=== PATIENT | female | born 1935 | race Caucasian/White ===

== ENCOUNTER 2016-08-31 19:29 | Emergency (ER) | payer MEDICARE, BC ==
[~2016-08-31 19:29] MED LIST: ADVA250A INH; ALBU1.25 NEB; ESTR1 PO; LEVA750T PO; PRED10 PO; PRED1SUS EACH EYE
[2016-08-31 19:36] VITALS: BP 139/65; PULSE 110; RESP 22; TEMP 99.1
--- NOTE | 2016-08-31 20:10 | PD ---
HPI Chief Complaint: Respiratory Symptoms Time Seen by Provider: 19:54 Travel History International Travel<30 days: No Contact w/Intl Traveler<30days: No Traveled to known affect area: No History of Present Illness HPI 81-year-old female complains of coughing congestion and shortness of breath. Patient has history COPD. Patient's on home O2 2 L nasal cannula. Patient states that she started having dry cough since yesterday. Patient started having fever chills also. Patient denies any chest pain. Patient uses albuterol nebulizer treatment at home, last treatment was yesterday. 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 PFSH Past Medical History Asthma: Yes Autoimmune Disease: No Blood Disorders: No Anxiety: No Depression: No Cancer: Yes (SKIN CANCER) Cardiovascular Problems: No High Cholesterol: No Chemotherapy: Yes (2013) COPD: Yes Diminished Hearing: No Endocrine: No Gastrointestinal Disorders: No Glaucoma: Yes Genitourinary: No Immune Disorder: No Implanted Vascular Access Dvce: No Musculoskeletal: Yes Neurologic: No Psychiatric: No Reproductive: No Respiratory: Yes Radiation Therapy: Yes (1943 or 49 childhood.) Shingles: Yes Menopausal: Yes Past Surgical History Abdominal Surgery: Yes (CHOLEYSYSTECTOMY, APPENDECTOMY) Appendectomy: Yes Cardiac Surgery: No Cholecystectomy: Yes Eye Surgery: Yes (RT CORNEA TRANSPLANT, CATARACT) Gynecologic Surgery: Yes (HYSTERECTOMY) Hysterectomy: Yes Joint Replacement: Yes (screws and metal plate in RUE.) Neurologic Surgery: No Oral Surgery: Yes (TONSILS AND ADNOIDS REMOVED) Pacemaker: No Thoracic Surgery: Yes ( LUNG BIOPSY, REMOVED NODULE 2006) Tonsillectomy: Yes Other Surgery: Yes (NODULE REMOVED FROM L LUNG IN OCTOBER 26) Social History Alcohol Use: Yes (OCC) Tobacco Use: No Substance Use: No Allergies-Medications (Allergen,Severity, Reaction): Coded Allergies: Percocet (Verified Allergy, Severe, NAUSEA, 05/16/16) Uncoded Allergies: ANTIBIOTICS THAT START WITH THE LETTER C (Allergy, Mild, ?, 01/05/12) PT CAN NOT REMEMBER THE NAME OF THE ANTIBIOTIC BUT STATES THAT IT GAVE HER UPSET STOMACH AND IT STARTED WITH LETTER C Reported Meds & Prescriptions Reported Meds & Active Scripts Active Albuterol Neb (Albuterol Sulfate) 1.25 Mg/3 Ml Neb 1.25 Mg NEB Q4HR PRN Reported Pred Forte Opth Drops (Prednisolone Acetate Opth Drops) 1% Susp 1 Drop EACH EYE BID Estrace (Estradiol) 1 Mg Tab 1 Mg PO DAILY Advair Diskus Inh (Fluticasone-Salmeterol Inh) 250-50 Mcg/Blist Aer 1 Puff INH BID Rinse mouth after use. Review of Systems General / Constitutional: No: Fever Eyes: No: Visual changes HENT: No: Headaches Cardiovascular: No: Chest Pain or Discomfort Respiratory: Positive: Cough, Shortness of Breath Gastrointestinal: No: Abdominal Pain Genitourinary: No: Dysuria Musculoskeletal: No: Pain Skin: No Rash Neurologic: No: Weakness Psychiatric: No: Depression Endocrine: No: Polydipsia Hematologic/Lymphatic: No: Easy Bruising Physical Exam Narrative GENERAL: Well-nourished, well-developed patient. SKIN: Warm and dry. HEAD: Normocephalic. EYES: No scleral icterus. No injection or drainage. NECK: Supple, trachea midline. No JVD or lymphadenopathy. CARDIOVASCULAR: Regular rate and rhythm without murmurs, gallops, or rubs. RESPIRATORY: Patient has diminished breath sounds bilaterally. Mild expiratory wheezes. Few rhonchi at the bases. GASTROINTESTINAL: Abdomen soft, non-tender, nondistended. MUSCULOSKELETAL: No cyanosis, or edema. BACK: Nontender without obvious deformity. No CVA tenderness. Neurologic exam normal. Data Data Last Documented VS Vital Signs Date Time Temp Pulse Resp B/P Pulse Ox O2 Delivery O2 Flow Rate FiO2 08/31/16 20:31 99.7 99 20 146/65 92 Nasal Cannula 3 Orders Influenzae A/B Antigen (08/31/16 20:05) Oximetry (08/31/16 20:05) Oxygen Administration (08/31/16 20:05) Chest, Single Ap (08/31/16 20:05) Albuterol-Ipratropium Neb (Duoneb Neb) (08/31/16 20:15) Dexamethasone Inj (Decadron Inj) (08/31/16 20:15) MDM Medical Decision Making Medical Screen Exam Complete: Yes Emergency Medical Condition: Yes Interpretation(s) 21:12 PM. Chest x-ray show no new consolidation or significant effusion. Cavitary nodule right upper lobe unchanged. Flu AB antigen negative. Differential Diagnosis Differential diagnosis including acute exacerbation COPD, bronchitis, pneumonia , PE, pneumothorax. Narrative Course 81-year-old female with coughing congestion and shortness of breath. History of COPD. Albuterol with Atrovent unit dose treatment times one. Decadron 8 mg IM. Zithromax 500 mg by mouth given. Diagnosis Primary Impression: Bronchitis Additional Impression: COPD with acute exacerbation Patient Instructions: General Instructions Additional Instructions: Continue with albuterol treatment at home every 4 hours as needed for shortness of breath. Zithromax and prednisone is directed. Follow-up with personal physician. Return if worse. Med/Other Pt SpecificInfo: Prescription(s) given Scripts Prednisone 20 Mg Tab20 Mg PO BID #10 TAB Prov:Jay Noe MD 08/31/16 Azithromycin (Zithromax Z-Gama)250 Mg [id number] Mg PO DIRECTED #1 DSPK 500 MG (2 tabs) day 1, then 1 tab days 2-5. Prov:Jay Noe MD 08/31/16 Disposition: 01 DISCHARGE HOME Condition: Stable Jay Noe MD Aug 31, 2016 20:10
[2016-08-31 20:12] VITALS: O2SAT 94
[2016-08-31] MEDS ORDERED: DEXAMETHASONE SOD PHOS 4 MG/ML VIAL IM ONE (20:15)
[2016-08-31] MEDS ORDERED: RESP: ALBUTEROL 2.5 MG/IPRATROPIUM 0.5 MG NEB (SCH) INH ONE (20:15)
[2016-08-31 20:31] VITALS: BP 146/65; PULSE 99; RESP 20; TEMP 99.7; O2SAT 92
--- NOTE | 2016-08-31 20:56 | RADHPO ---
EXAM DATE/TIME: 08/31/2016 20:35 [facility] COMPARISON: CT PULMONARY ANGIOGRAM, May 17, 2016, 17:22. CHEST SINGLE AP, May 16, 2016, 21:19. INDICATIONS : Short of breath. MEDICAL HISTORY : Chronic obstructive pulmonary disease. SURGICAL HISTORY : Appendectomy. Cholecystectomy. Right humerus surgery ENCOUNTER: Initial ACUITY: 1 day PAIN SCORE: 0/10 LOCATION: Bilateral chest FINDINGS: There is an approximately 2 cm cavitary nodule lobe which is similar in size to prior CT chest from [facility]2015. There is underlying emphysema and mild hyperinflation. There is bronchiectasis and peribronchial thickening, especially in the right lower lobe similar to prior CT scan. No new consoli dation or effusion. Heart size normal. Atherosclerotic and tortuous aorta. CONCLUSION: 1. Findings similar to chest CT from April 2016 with 2 cm cavitary nodule right upper lobe, bronch iectasis and peribronchial thickening and underlying emphysema with mild hyperinflation. No new conso lidation or significant effusion. Ba Yang MD on August 31, 2016 at 20:51 Board Certified Radiologist. This report was verified electronically.
[2016-08-31 21:12] VITALS: BP 150/70; PULSE 90; RESP 20; O2SAT 95
[2016-08-31] MEDS ORDERED: ZITHTAB PO (21:19)
[2016-08-31] MEDS ORDERED: PRED20 PO (21:19)
[2016-08-31] MEDS ORDERED: AZITHROMYCIN 250 MG TAB PO ONE (21:30)
== END 2016-08-31 21:37 | disposition home or self-care (01) ==
LOC: PHEFT 19:29
DX: J44.1 Chronic obstructive pulmonary disease with (acute) exacerbation (principal); J40 Bronchitis, not specified as acute or chronic; J45.909 Unspecified asthma, uncomplicated
CPT/HCPCS: 71010; 87804; 94664; 96372; 99285; J1100

== ENCOUNTER 2016-09-06 19:33 | Inpatient (IN) | payer MEDICARE, BC ==
[~2016-09-06] VITALS: Ht 170.2 cm; Wt 58.1 kg
[~2016-09-06 19:33] MED LIST changes: -LEVA750T PO; -PRED10 PO; +PRED20 PO; +ZITHTAB PO
[2016-09-06 19:35] VITALS: RESP 22; O2SAT 95
[2016-09-06 19:40] VITALS: BP 150/73; PULSE 79; RESP 22; TEMP 98.7; O2SAT 96
[2016-09-06] MEDS: RESP: ALBUTEROL 2.5 MG/IPRATROPIUM 0.5 MG NEB (SCH) INH ×2 (19:41→19:42)
[2016-09-06] MEDS ORDERED: methylPREDNISolone SOD SUCC 125 MG/2 ML VIAL IVP ONE (19:45)
--- NOTE | 2016-09-06 20:00 | PD ---
HPI Chief Complaint: Respiratory Distress Time Seen by Provider: 19:37 Travel History International Travel<30 days: No Contact w/Intl Traveler<30days: No Traveled to known affect area: No History of Present Illness HPI 81-year-old female presents to the emergency department by private transportation for evaluation of shortness of breath. Patient denies any fever or chills productive cough or chest pain. Patient has a home nebulizer and has been using this medication without symptomatically relief. Patient uses supplemental oxygen 2 L/m nasal cannula on an as-needed basis for dyspnea. Patient has history of severe COPD. 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 Patient was recently seen in the emergency department 08/31/16 for cough and diagnosed with bronchitis and prescribed azithromycin and prednisone. Patient completed a course of antibiotic. Patient's had no nausea no vomiting and no diarrhea or crampy abdominal pain. Patient does not report any urinary complaints. Patient does not report orthopnea or PND. No lower extremity pain or swelling. No pleuritic chest pain. No history of PE. Exacerbation of symptoms 1 day. PFSH Past Medical History Narrative Medical COPD, skin cancerchemotherapy, cavitary lung lesion/mass noted 04/2016, glaucoma, shingles, chest radiation therapy 9-child; cataract surgery, hysterectomy, appendectomy, cholecystectomy, tonsillectomy, 2006 lung nodule biopsy; alcohol use, remote tobacco use; nursing notes reviewed Asthma: Yes Autoimmune Disease: No Blood Disorders: No Anxiety: No Depression: No Cancer: Yes (SKIN CANCER) Cardiovascular Problems: No High Cholesterol: No Chemotherapy: Yes (2013) COPD: Yes Diminished Hearing: No Endocrine: No Gastrointestinal Disorders: No Glaucoma: Yes Genitourinary: No Immune Disorder: No Implanted Vascular Access Dvce: No Musculoskeletal: Yes Neurologic: No Psychiatric: No Reproductive: No Respiratory: Yes Radiation Therapy: Yes (1943 or 49 childhood.) Shingles: Yes Menopausal: Yes Past Surgical History Abdominal Surgery: Yes (CHOLEYSYSTECTOMY, APPENDECTOMY) Appendectomy: Yes Cardiac Surgery: No Cholecystectomy: Yes Eye Surgery: Yes (RT CORNEA TRANSPLANT, CATARACT) Gynecologic Surgery: Yes (HYSTERECTOMY) Hysterectomy: Yes Joint Replacement: Yes (screws and metal plate in RUE.) Neurologic Surgery: No Oral Surgery: Yes (TONSILS AND ADNOIDS REMOVED) Pacemaker: No Thoracic Surgery: Yes ( LUNG BIOPSY, REMOVED NODULE 2006) Tonsillectomy: Yes Other Surgery: Yes (NODULE REMOVED FROM L LUNG IN OCTOBER 26) Social History Alcohol Use: Yes (OCC) Tobacco Use: No Substance Use: No Allergies-Medications (Allergen,Severity, Reaction): Coded Allergies: Percocet (Verified Allergy, Severe, NAUSEA, 09/06/16) Uncoded Allergies: ANTIBIOTICS THAT START WITH THE LETTER C (Allergy, Mild, ?, 01/05/12) PT CAN NOT REMEMBER THE NAME OF THE ANTIBIOTIC BUT STATES THAT IT GAVE HER UPSET STOMACH AND IT STARTED WITH LETTER C Reported Meds & Prescriptions Reported Meds & Active Scripts Active Prednisone 20 Mg Tab 20 Mg PO BID Zithromax Z-Gama (Azithromycin) 250 Mg Dspk 250 Mg PO DIRECTED 500 MG (2 tabs) day 1, then 1 tab days 2-5. Albuterol Neb (Albuterol Sulfate) 1.25 Mg/3 Ml Neb 1.25 Mg NEB Q4HR PRN Reported Pred Forte Opth Drops (Prednisolone Acetate Opth Drops) 1% Susp 1 Drop EACH EYE BID Estrace (Estradiol) 1 Mg Tab 1 Mg PO DAILY Advair Diskus Inh (Fluticasone-Salmeterol Inh) 250-50 Mcg/Blist Aer 1 Puff INH BID Rinse mouth after use. Review of Systems Except as stated in HPI: all other systems reviewed are Neg General / Constitutional: No: Fever, Chills HENT: No: Congestion Cardiovascular: No: Chest Pain or Discomfort Respiratory: Positive: Shortness of Breath, No: Hemoptysis, Pleuritic Pain Gastrointestinal: No: Nausea, Vomiting, Diarrhea, Abdominal Pain Genitourinary: No: Dysuria, Flank Pain Musculoskeletal: No: Myalgias, Arthralgias, Edema, Pain Skin: No Rash Neurologic: No: Weakness Psychiatric: No: Anxiety Hematologic/Lymphatic: No: Easy Bruising Physical Exam Narrative GENERAL: Well-developed thin elderly female in moderate respiratory distress demonstrating some work of breathing with room air O2 saturations 87-89% SKIN: Warm and dry. HEAD: Normocephalic. EYES: No scleral icterus. No injection or drainage. NECK: Supple, trachea midline. No JVD or lymphadenopathy. CARDIOVASCULAR: Regular rate and rhythm without murmurs, gallops, or rubs. RESPIRATORY: Breath sounds equal diminished with expiratory wheezes bilaterally and accessory muscle use. GASTROINTESTINAL: Abdomen soft, non-tender, nondistended. MUSCULOSKELETAL: No cyanosis, or edema. BACK: Nontender without obvious deformity. No CVA tenderness. Data Data Last Documented VS Vital Signs Date Time Temp Pulse Resp B/P Pulse Ox O2 Delivery O2 Flow Rate FiO2 09/06/16 19:50 80 24 96 Nasal Cannula 2 09/06/16 19:40 98.7 150/73 Orders Iv Access Insert/Monitor (09/06/16 19:37) Ecg Monitoring (09/06/16 19:37) Oximetry (09/06/16 19:37) Oxygen Administration (09/06/16 19:37) Sodium Chloride 0.9% Flush (Ns Flush) (09/06/16 19:45) Methylprednisolone So Succ Inj (Solumedr (09/06/16 19:45) Albuterol-Ipratropium Neb (Duoneb Neb) (09/06/16 19:45) Complete Blood Count With Diff (09/06/16 19:38) Basic Metabolic Panel (Bmp) (09/06/16 19:38) B-Type Natriuretic Peptide (09/06/16 19:38) Magnesium (Mg) (09/06/16 19:38) Troponin I (09/06/16 19:38) Electrocardiogram (09/06/16 19:38) Chest, Single Ap (09/06/16 19:38) Blood Culture (09/06/16 20:37) Piperacil-Tazo 3.375 Gm Premix (Zosyn 3. (09/06/16 20:45) Labs Laboratory Tests Test 09/06/16 19:55 White Blood Count 14.0 TH/MM3 Red Blood Count 4.51 MIL/MM3 Hemoglobin 13.3 GM/DL Hematocrit 41.5 % Mean Corpuscular Volume 92.0 FL Mean Corpuscular Hemoglobin 29.5 PG Mean Corpuscular Hemoglobin 32.0 % Concent Red Cell Distribution Width 13.4 % Platelet Count 320 TH/MM3 Mean Platelet Volume 7.9 FL Neutrophils (%) (Auto) 90.7 % Lymphocytes (%) (Auto) 2.7 % Monocytes (%) (Auto) 2.7 % Eosinophils (%) (Auto) 0.0 % Basophils (%) (Auto) 3.9 % Neutrophils # (Auto) 12.7 TH/MM3 Lymphocytes # (Auto) 0.4 TH/MM3 Monocytes # (Auto) 0.4 TH/MM3 Eosinophils # (Auto) 0.0 TH/MM3 Basophils # (Auto) 0.5 TH/MM3 CBC Comment DIFF FINAL Differential Comment Sodium Level 134 MEQ/L Potassium Level 4.4 MEQ/L Chloride Level 91 MEQ/L Carbon Dioxide Level 36.5 MEQ/L Anion Gap 7 MEQ/L Blood Urea Nitrogen 14 MG/DL Creatinine 0.51 MG/DL Estimat Glomerular Filtration 116 ML/MIN Rate Random Glucose 132 MG/DL Calcium Level 8.5 MG/DL Magnesium Level 1.9 MG/DL Troponin I LESS THAN 0.02 NG/ML B-Type Natriuretic Peptide 82 PG/ML MDM Medical Decision Making Medical Screen Exam Complete: Yes Emergency Medical Condition: Yes Medical Record Reviewed: Yes Interpretation(s) EKG: normal sinus rhythm rate [address] elevation or injury pattern change or ectopy noted baseline artifact is present Last Impressions Chest X-Ray 09/06/16 193 Signed Impressions: Service Date/Time: Thursday, September 06, 2016 20:04 - CONCLUSION: COPD with bibasilar atelectasis/infiltrates. Ata Lima MD CBC & BMP Diagram 09/06/16 19:55 Vital Signs Date Time Temp Pulse Resp B/P Pulse Ox O2 Delivery O2 Flow Rate FiO2 09/06/16 19:40 98.7 79 22 150/73 96 09/06/16 19:35 22 95 Nasal Cannula 2 09/06/16 19:35 89 Nasal Cannula 2 BNP: 82, not elevated troponin I: less than 0.02, not elevated Differential Diagnosis Exacerbation COPD, pneumonia, PE, CHF, atypical ACS Narrative Course Patient presents on room air placed on cardiac monitors supplemental oxygen 2 L/ M NC IV access obtained specimen was collected and sent for resulting patient administered Solu-Medrol 125 mg IV along with 3 DuoNeb updrafts for management of exacerbation of COPD with hypoxia on room air. At 8:35 PM chest x-ray consistent with COPD with atelectatic versus basilar infiltrate changes noted by reading radiologist; no cardiomegaly or vascular congestion; lab values resulted and CBC reveals leukocytosis 14,000 with 90% neutrophils by automated differential white count may reflect recent prednisone use but in view of left shift we'll obtain blood cultures and presumptively administer IV antibiotic. Chemistries grossly within normal range except for elevated bicarbonate. By white cell count and respiratory rate patient meet SIRS criteria; patient has been afebrile without productive cough, atelectasis versus basilar infiltrate possible source of infection for sepsis again blood cultures obtained and antibiotic will be administered. Plan for admission for exacerbation of COPD still demonstrating some work of breathing however, lung sounds improved and O2 sats improved. Call placed to [facility] service. Sepsis Criteria SIRS Criteria (2 or more): RR > 20 or PaCO2 < 32, WBC > 10632, < 4000 or > 10 % bands Physician Communication Physician Communication call placed to [facility] service; Diagnosis Primary Impression: COPD with acute exacerbation Benita Rausch MD Sep 06, 2016 19:59
[2016-09-06] MEDS: SODIUM CHLORIDE 0.9% FLUSH 5 ML FLUSH IVF PRN ×2 (20:06→21:08)
[2016-09-06 20:12] LABS: AUTOMATED NEUTROPHIL # 12.7 TH/MM3 (1.8-7.7); BASOPHIL # 0.5 TH/MM3 (0-0.2); BASOPHIL % 3.9 % (0.0-2.0); HEMATOCRIT 41.5 % (35.0-46.0); LYMPH % 2.7 % (9.0-44.0); LYMPHOCYTE # 0.4 TH/MM3 (1.0-4.8); MEAN CORPUSCULAR HEMOGLOBIN 29.5 PG (27.0-34.0); MONO % 2.7 % (0.0-8.0); NEUT % 90.7 % (16.0-70.0); PLATELET COUNT 320 TH/MM3 (150-450); RED BLOOD COUNT 4.51 MIL/MM3 (4.00-5.30); RED CELL DISTRIBUTION WIDTH 13.4 % (11.6-17.2)
--- NOTE | 2016-09-06 20:19 | RADHPO ---
EXAM DATE/TIME: 09/06/2016 20:04 [facility] COMPARISON: CHEST SINGLE AP, August 31, 2016, 20:35. INDICATIONS : Short of breath. MEDICAL HISTORY : Chronic obstructive pulmonary disease. SURGICAL HISTORY : Appendectomy. Cholecystectomy. Right humerus. ENCOUNTER: Initial ACUITY: 1 week PAIN SCORE: 0/10 LOCATION: Bilateral chest FINDINGS: A single view of the chest demonstrates hyperinflation with bibasilar densities. Heart normal in size .. The cardiomediastinal contours are unremarkable. Osseous structures are intact. CONCLUSION: COPD with bibasilar atelectasis/infiltrates. Ata Lima MD on September 06, 2016 at 20:16 Board Certified Radiologist. This report was verified electronically.
[2016-09-06 20:21] LABS: CHLORIDE 91 MEQ/L (98-107); POTASSIUM 4.4 MEQ/L (3.5-5.1); SODIUM (NA) 134 MEQ/L (136-145)
[2016-09-06 20:23] LABS: ANION GAP 7 MEQ/L (5-15); BICARBONATE 36.5 MEQ/L (21.0-32.0); MAGNESIUM 1.9 MG/DL (1.5-2.5)
[2016-09-06 20:24] LABS: BLOOD UREA NITROGEN 14 MG/DL (7-18)
[2016-09-06 20:26] LABS: HEMO FLAGS DIFF FINAL
[2016-09-06 20:27] LABS: GLOMERULAR FILTRATION RATE 116 ML/MIN (>89)
[2016-09-06] MEDS ORDERED: PIPERACIL-TAZO 3.375 GM PREMIX 50 ML IV ONE (20:45)
[2016-09-06 21:10] VITALS: O2SAT 96
[2016-09-06] MEDS ORDERED: SODIUM CHLORIDE 0.9% FLUSH 5 ML FLUSH IVF PRN (21:15)
[2016-09-06] MEDS ORDERED: SPIRCAP INH (21:27)
[2016-09-06] MEDS ORDERED: PRED1SUS RIGHT EYE (21:27)
[2016-09-06] MEDS ORDERED: BISACODYL 10 MG SUPP PR PRN (21:30)
[2016-09-06] MEDS ORDERED: ONDANSETRON HCL 4 MG/2 ML VIAL IVP PRN (21:30)
[2016-09-06] MEDS ORDERED: ACETAMINOPHEN 325 MG TAB PO PRN (21:30)
[2016-09-06] MEDS ORDERED: MORPHINE SULFATE 4 MG/ML INJ IV PRN (21:30)
[2016-09-06 22:45] VITALS: BP 137/63; PULSE 94; RESP 18; O2SAT 96
[2016-09-06] MEDS ORDERED: RESP: ALBUTEROL 2.5 MG/IPRATROPIUM 0.5 MG NEB (SCH) NEB ONE (22:45)
[2016-09-07] VITALS (9 sets, daily range): BP systolic 118–142; BP diastolic 63–79; PULSE 72–106; RESP 16–20; TEMP 96.5–98; O2SAT 90–97
[2016-09-07 06:43] LABS: AUTOMATED NEUTROPHIL # 8.9 TH/MM3 (1.8-7.7); BASOPHIL % 0.2 % (0.0-2.0); HEMATOCRIT 37.5 % (35.0-46.0); HEMO FLAGS DIFF FINAL; LYMPH % 1.6 % (9.0-44.0); LYMPHOCYTE # 0.1 TH/MM3 (1.0-4.8); MEAN CELL VOLUME 91.2 FL (80.0-100.0); MEAN CORPUSCULAR HEMOGLOBIN 29.2 PG (27.0-34.0); MONO % 0.8 % (0.0-8.0); NEUT % 97.4 % (16.0-70.0); PLATELET COUNT 296 TH/MM3 (150-450); RED BLOOD COUNT 4.11 MIL/MM3 (4.00-5.30); RED CELL DISTRIBUTION WIDTH 13.2 % (11.6-17.2); WHITE BLOOD COUNT 9.1 TH/MM3 (4.0-11.0)
[2016-09-07 06:49] LABS: CHLORIDE 93 MEQ/L (98-107); POTASSIUM 4.5 MEQ/L (3.5-5.1); SODIUM (NA) 137 MEQ/L (136-145)
[2016-09-07 06:52] LABS: ANION GAP 4 MEQ/L (5-15); BICARBONATE 40.3 MEQ/L (21.0-32.0)
[2016-09-07 06:53] LABS: BLOOD UREA NITROGEN 12 MG/DL (7-18)
[2016-09-07 06:55] LABS: ALT (GPT) 19 U/L (10-53)
[2016-09-07 06:56] LABS: AST (GOT) 8 U/L (15-37); GLOMERULAR FILTRATION RATE 122 ML/MIN (>89)
[2016-09-07 06:57] LABS: TOTAL BILIRUBIN ADULT 0.4 MG/DL (0.2-1.0)
[2016-09-07 06:58] LABS: ALKALINE PHOSPHATASE 65 U/L (45-117)
[2016-09-07] MEDS: RESP: ALBUTEROL 2.5 MG/IPRATROPIUM 0.5 MG NEB (SCH) NEB ×4 (07:31→19:13)
--- NOTE | 2016-09-07 08:17 | EKG ---
Date Performed: 09/06/2016 Time Performed: 19:48:48 PTAGE: 81 years EKG: Sinus rhythm . Normal ECG No significant change from prior electrocardiogram. PREVIOUS TRACING : 05/16/2016 21.22 DOCTOR: Kit Weeks Interpretating Date/Time 09/07/2016 08:15:31
[2016-09-07] MEDS ORDERED: SODIUM CHLORIDE 0.9% FLUSH 5 ML FLUSH IVF SCH (09:00)
[2016-09-07] MEDS: guaiFENesin E.R. 600 MG TAB PO SCH ×2 (10:06→20:38)
[2016-09-07] MEDS: LEVOFLOXACIN 750 MG PREMIX INJ 150 ML IV SCH (10:07)
[2016-09-07] MEDS: SODIUM CHLORIDE 0.9% FLUSH 5 ML FLUSH FLUSH SCH ×2 (10:07→20:38)
--- NOTE | 2016-09-07 11:08 | HHI.HP ---
[facility] Service [facility] Primary Care Physician No Primary Care Physician Admission Diagnosis exacerbation COPD Diagnoses: (1) Systemic inflammatory response syndrome Diagnosis: Principal (2) COPD with acute exacerbation Diagnosis: Principal (3) Leucocytosis Diagnosis: Principal Travel History International Travel<30 Days: No Contact w/Intl Traveler <30 Da: No Traveled to Known Affected Are: No Sepsis Criteria SIRS Criteria (2 or more): Temp > 100.9 or < 96.8, WBC > 64864, < 4000 or > 10 % bands Criteria Outcome: Meets SIRS criteria History of Present Illness 81-year-old female with known history of chronic respiratory failure, chronic obstructive pulmonary disease, lung mass who is followed by Dr. devries in outpatient setting who presented to the hospital because of shortness of breath and dyspnea. Patient states that she came to emergency department a week ago for her shortness of breath and dyspnea. She was started on Zithromax , prednisone and she states that she finished the medication and she was not completely improved so she came back to the hospital for evaluation. She indicates that she did try calling her lithographic printing machinist however she told me that they're on vacation. Patient does have chronic respiratory failure on oxygen at home at least 2 L at night and on exertion, she states that she has not been wearing it continuously since her recent bronchitis/COPD exacerbation. Because she did not get any better after taken the Zithromax for 5 days she came back to the hospital for evaluation. There is a documented 89% O2 saturation on 2 L. Because the patient had tachycardia, tachypnea, leukocytosis is recommended by ER physician that patient be admitted for systemic inflammatory response syndrome and COPD exacerbation. Patient does admit to shortness of breath, dyspnea with is been going on for over 2 weeks. She has not been in contact with her lithographic printing machinist for outpatient recommendations. She has had a cough with no phlegm production. Denies any chest pain, nausea, vomiting, diaphoresis , chills, night sweats, hemoptysis. Review of Systems Constitutional: DENIES: Diaphoretic episodes, Fatigue, Fever, Weight gain, Weight loss, Chills, Dizziness, Change in appetite, Night Sweats Eyes: DENIES: Blurred vision, Diplopia, Eye inflammation, Eye pain, Vision loss , Double Vision Ears, nose, mouth, throat: DENIES: Vertigo, Nasal discharge, Throat pain, Ear Pain, Running Nose, Sinus Pain Respiratory: COMPLAINS OF: Cough, Shortness of breath, DENIES: Apneas, Snoring , Wheezing, Hemoptysis, Sputum production Cardiovascular: DENIES: Chest pain, Palpitations, Syncope, Dyspnea on Exertion , PND, Lower Extremity Edema, Orthopnea, Claudication Gastrointestinal: DENIES: Abdominal pain, Black stools, Bloody stools, Constipation, Diarrhea, Nausea, Vomiting, Difficulty Swallowing, Anorexia Neurologic: DENIES: Abnormal gait, Headache, Localized weakness, Paresthesias, Seizures, Speech Problems, Tremor, Poor Balance Past Family Social History Past Medical History COPD on oxygen at night as needed Skin cancer left arm, chemo cream use Anxiety History of glaucoma Radiation therapy as a child for a mole over the chest Past Surgical History Cholecystectomy Appendectomy Right cataract repair and corneal transplant. Hysterectomy Tonsillectomy and adenoidectomy Screws and plate in the right upper extremity 2011. Biopsy left lung performed in 2006, benign nodule. Reported Medications Reported Meds & Active Scripts Active Prednisone 20 Mg Tab 20 Mg PO BID Zithromax Z-Gama (Azithromycin) 250 Mg Dspk 250 Mg PO DIRECTED 500 MG (2 tabs) day 1, then 1 tab days 2-5. Albuterol Neb (Albuterol Sulfate) 1.25 Mg/3 Ml Neb 1.25 Mg NEB Q4HR PRN Reported Spiriva Handihaler (Tiotropium Inh) 18 Mcg Cap 18 Mcg INH DAILY 1 capsule = 18 mcg Pred Forte Opth Drops (Prednisolone Acetate Opth Drops) 1% Susp 1 Drop RIGHT EYE MWF Estrace (Estradiol) 1 Mg Tab 1 Mg PO DAILY Advair Diskus Inh (Fluticasone-Salmeterol Inh) 250-50 Mcg/Blist Aer 1 Puff INH BID Rinse mouth after use. Allergies: Coded Allergies: Percocet (Verified Allergy, Severe, NAUSEA, 09/06/16) Uncoded Allergies: ANTIBIOTICS THAT START WITH THE LETTER C (Allergy, Mild, ?, 01/05/12) PT CAN NOT REMEMBER THE NAME OF THE ANTIBIOTIC BUT STATES THAT IT GAVE HER UPSET STOMACH AND IT STARTED WITH LETTER C Family History Reviewed is significant for father having asthma mother with Alzheimer's Social History Quit smoking cigarettes in 2006. Prior to this smoked one pack per day since a teenager, Patient drinks half to one glass of wine per week. Denies history of illicit drug use. Physical Exam Vital Signs Vital Signs Date Time Temp Pulse Resp B/P Pulse Ox O2 Delivery O2 Flow Rate FiO2 09/07/16 08:00 97.2 82 20 118/63 94 09/07/16 07:40 92 Nasal Cannula 2.00 09/07/16 04:00 96.5 72 16 121/63 95 09/07/16 00:32 104 09/06/16 22:45 94 18 137/63 96 Room Air 09/06/16 21:10 96 Nasal Cannula 3.00 09/06/16 19:50 80 24 96 Nasal Cannula 2 09/06/16 19:40 98.7 79 22 150/73 96 09/06/16 19:35 22 95 Nasal Cannula 2 09/06/16 19:35 89 Nasal Cannula 2 Physical Exam GENERAL: Well-developed, frail, cachectic looking, in no acute distress. alert and orientated HEENT: Head is normocephalic without any lesions or masses noted. Facial features are symmetric. Eyes: Pupils equal round reactive to light. Extraocular muscles are intact. Conjunctivae were clear. Oropharyngeal: Pharynx without any erythema edema. Tongue is midline without deviation. Buccal mucosa is moist without any masses or lesions NECK: Supple without any masses. Trachea midline no deviation. No JVD, no bruits are appreciated CARDIAC: Regular rhythm, regular rate. S1/S2 are heard. No murmurs gallops or rubs. LUNGS: Wheeze noted bilaterally. Diminished breath sounds. No Rhonchi or rales. No use of accessory muscles on inspiration or expiration. ABDOMEN: Soft, nontender. Nondistended. Bowel sounds heard in all 4 quadrants. No organomegaly or masses. Negative rebound, negative guarding EXTREMITIES: No edema, pulses are equal bilaterally. No cyanosis or clubbing NEUROLOGY: Mood and affect appear appropriate. Cranial nerves II through XII grossly intact. Muscle strength 5/5 in upper and lower extremities bilaterally. Deep tendon reflexes are 2+ in upper and lower extremities bilaterally. Laboratory Laboratory Tests Test 09/06/16 09/07/16 19:55 06:02 White Blood Count 14.0 9.1 Red Blood Count 4.51 4.11 Hemoglobin 13.3 12.0 Hematocrit 41.5 37.5 Mean Corpuscular Volume 92.0 91.2 Mean Corpuscular Hemoglobin 29.5 29.2 Mean Corpuscular Hemoglobin 32.0 32.0 Concent Red Cell Distribution Width 13.4 13.2 Platelet Count 320 296 Mean Platelet Volume 7.9 8.1 Neutrophils (%) (Auto) 90.7 97.4 Lymphocytes (%) (Auto) 2.7 1.6 Monocytes (%) (Auto) 2.7 0.8 Eosinophils (%) (Auto) 0.0 0.0 Basophils (%) (Auto) 3.9 0.2 Neutrophils # (Auto) 12.7 8.9 Lymphocytes # (Auto) 0.4 0.1 Monocytes # (Auto) 0.4 0.1 Eosinophils # (Auto) 0.0 0.0 Basophils # (Auto) 0.5 0.0 CBC Comment DIFF FINAL DIFF FINAL Differential Comment Sodium Level 134 137 Potassium Level 4.4 4.5 Chloride Level 91 93 Carbon Dioxide Level 36.5 40.3 Anion Gap 7 4 Blood Urea Nitrogen 14 12 Creatinine 0.51 0.49 Estimat Glomerular Filtration 116 122 Rate Random Glucose 132 127 Calcium Level 8.5 8.6 Magnesium Level 1.9 Troponin I LESS THAN 0.02 B-Type Natriuretic Peptide 82 Total Bilirubin 0.4 Aspartate Amino Transf 8 (AST/SGOT) Alanine Aminotransferase 19 (ALT/SGPT) Alkaline Phosphatase 65 Total Protein 6.7 Albumin 2.7 Date/Time Procedure Status Source Growth 09/06/16 21:07 Aerobic Blood Culture Received Blood Peripheral Pending 09/06/16 21:07 Anaerobic Blood Culture Received Blood Peripheral Pending Result Diagram: 09/07/16 0602 09/07/16 0602 Imaging Last Impressions Chest X-Ray 09/06/16 193 Signed Impressions: Service Date/Time: Tuesday, September 06, 2016 20:04 - CONCLUSION: COPD with bibasilar atelectasis/infiltrates. Ata Lima MD Assessment and Plan Assessment and Plan Systemic inflammatory response syndrome: Resolved Secondary to chronic obstructive pulmonary disease exacerbation. Patient presented with leukocytosis , tachycardia. Blood cultures are pending. Will obtain urinalysis. Chest x- ray does indicate bibasilar atelectasis/infiltrates. Continue Levaquin. Obtain sputum culture Acute on chronic respiratory failure secondary to chronic affective pulmonary disease exacerbation: Continue O2 supplementation maintain O2 sats greater 92%. Continue Levaquin for antibiotic coverage. Continue DuoNeb treatment. Continue Solu-Medrol. Continue Symbicort, guaifenesin. Start incentive spirometry DVT prevention: Lovenox Written by Dany Euceda PA-C, acting as scribe for Dr. Moore on 09/07/16 at 1155. The documentation accurately reflects the work and decisions performed face-to- face by Dr. Moore on 09/07/16 at 1155. Problem Qualifiers (1) Leucocytosis: Qualified Code: D72.829 - Leukocytosis, unspecified type Dany Euceda Sep 07, 2016 11:08 Barrera Moore MD Sep 07, 2016 16:02
[2016-09-07] MEDS: BUDESONIDE-FORMOTEROL 160/4.5 MCG INHALER INH SCH ×2 (11:37→20:38)
[2016-09-07] MEDS: methylPREDNISolone SOD SUCC 40 MG/1 ML VIAL IV PUSH SCH ×2 (12:05→17:53)
[2016-09-07] MEDS ORDERED: ALPRAZolam 0.25 MG TAB PO PRN (12:15)
[2016-09-07] MEDS: SODIUM CHLORIDE 0.9% FLUSH 5 ML FLUSH FLUSH PRN (17:56)
[2016-09-07 22:05] LABS: BLOOD, URINE NEG (NEG); GLUCOSE,URINE NEG (NEG); KETONE, URINE NEG (NEG); NITRITE,URINE NEG (NEG)
[2016-09-07 22:14] LABS: METHOD OF COLLECTION CLEAN CATCH
[2016-09-07 22:15] LABS: COMMENT (UR) CULT NOT INDICATED; CULTURE IF INDICATED CULT NOT INDICATED; MUCUS URINE FEW /lpf (OCC); URINE COLOR YELLOW (YELLW/STRAW); WBC, URINE 0-2 /hpf (0-5)
[2016-09-08] VITALS (8 sets, daily range): BP systolic 115–150; BP diastolic 66–87; PULSE 73–96; RESP 16–20; TEMP 96.6–99.5; O2SAT 91–97
[2016-09-08] MEDS: methylPREDNISolone SOD SUCC 40 MG/1 ML VIAL IV PUSH SCH ×5 (00:03→22:58)
[2016-09-08 06:21] LABS: POTASSIUM 4.6 MEQ/L (3.5-5.1)
[2016-09-08 06:23] LABS: AUTOMATED NEUTROPHIL # 8.3 TH/MM3 (1.8-7.7); BASOPHIL % 0.1 % (0.0-2.0); EOSINOPHIL % 0.1 % (0.0-4.0); HEMATOCRIT 38.7 % (35.0-46.0); HEMO FLAGS DIFF FINAL; LYMPH % 1.9 % (9.0-44.0); LYMPHOCYTE # 0.2 TH/MM3 (1.0-4.8); MEAN CELL VOLUME 92.1 FL (80.0-100.0); MEAN CORPUSCULAR HEMOGLOBIN 30.5 PG (27.0-34.0); MEAN CORPUSCULAR HGB CONC 33.1 % (32.0-36.0); MONO % 1.1 % (0.0-8.0); NEUT % 96.8 % (16.0-70.0); PLATELET COUNT 316 TH/MM3 (150-450); RED CELL DISTRIBUTION WIDTH 13.3 % (11.6-17.2); WHITE BLOOD COUNT 8.6 TH/MM3 (4.0-11.0)
[2016-09-08 06:24] LABS: BICARBONATE 38.4 MEQ/L (21.0-32.0); MAGNESIUM 2.1 MG/DL (1.5-2.5)
[2016-09-08] MEDS: RESP: ALBUTEROL 2.5 MG/IPRATROPIUM 0.5 MG NEB (PRN) NEB (07:52)
[2016-09-08] MEDS: guaiFENesin E.R. 600 MG TAB PO SCH ×2 (08:38→23:01)
[2016-09-08] MEDS: BUDESONIDE-FORMOTEROL 160/4.5 MCG INHALER INH SCH ×2 (08:39→23:02)
[2016-09-08] MEDS: LEVOFLOXACIN 750 MG PREMIX INJ 150 ML IV SCH (08:40)
[2016-09-08] MEDS: SODIUM CHLORIDE 0.9% FLUSH 5 ML FLUSH FLUSH SCH ×2 (08:40→22:59)
[2016-09-08] MEDS: RESP: ALBUTEROL 2.5 MG/IPRATROPIUM 0.5 MG NEB (SCH) NEB ×4 (11:32→19:51)
--- NOTE | 2016-09-08 12:16 | HHI.PR ---
Subjective Remarks Patient still looks anxious, poor historian, on O2 she stated she feels the same since she came, reported coughing with greenish phlegm No fever. We'll continue Solu-Medrol and Zithromax Objective Vitals Vital Signs Date Time Temp Pulse Resp B/P Pulse Ox O2 Delivery O2 Flow Rate FiO2 09/08/16 08:00 96.6 75 20 136/80 91 09/08/16 07:59 92 Nasal Cannula 2.00 09/08/16 05:20 97.6 73 16 126/66 95 09/08/16 00:51 98.3 80 18 115/78 92 09/07/16 21:00 106 09/07/16 20:46 98.0 96 20 132/77 90 09/07/16 19:15 97 Nasal Cannula 2.00 09/07/16 16:00 96.8 95 20 142/79 94 I/O 09/07/16 09/07/16 09/07/16 09/08/16 09/08/16 09/08/16 07:00 15:00 23:00 07:00 15:00 23:00 Intake Total 752 ml Balance 752 ml Intake Oral 750 ml IV Total 2 ml # Voids 3 3 2 # Bowel Movements 0 Result Diagram: 09/08/16 0500 09/08/16 0500 Imaging Last Impressions Chest X-Ray 09/06/16 193 Signed Impressions: Service Date/Time: Tuesday, September 06, 2016 20:04 - CONCLUSION: COPD with bibasilar atelectasis/infiltrates. Ata Lima MD Objective Remarks - - GENERAL: This frail elderly patient, in mild distress mostly due to anxiety SKIN: No rashes, warm and dry HEAD: Atraumatic. Normocephalic. EYES: Pupils equal round and reactive. Extraocular motions intact. No scleral icterus. ENT: Nose without bleeding, or drainage, Airway patent. NECK: Trachea midline. Supple CARDIOVASCULAR: Regular rate and rhythm without murmurs, gallops, or rubs. RESPIRATORY: Positive wheezes bilaterally with few fine crackles at the base. GASTROINTESTINAL: Abdomen soft, non-tender, nondistended. Positive bowel sounds MUSCULOSKELETAL: Extremities without clubbing, cyanosis, or edema. Pedal pulses appreciated NEUROLOGICAL: Awake and alert. Moves all extremity. Normal speech.no focal neurological deficit A/P Problem List: (1) Systemic inflammatory response syndrome ICD Code: R65.10 Status: Acute (2) COPD with acute exacerbation ICD Code: J44.1 Status: Acute (3) Leucocytosis ICD Code: D72.829 Status: Acute Assessment and Plan SIRS: Possibly due to COPD exacerbation versus superimposed pneumonia. Patient presented with leukocytosis and left shift, tachycardia. Blood cultures are pending. urinalysis reviewed. Chest x-ray does indicate bibasilar atelectasis/infiltrates. Continue Levaquin. Culture pending , DuoNeb O2, Solu-Medrol Acute on chronic respiratory failure secondary to chronic affective pulmonary disease exacerbation: Continue O2 supplementation maintain O2 sats greater 92%. Continue Levaquin for antibiotic coverage. Continue DuoNeb treatment. Continue Solu-Medrol. Continue Symbicort, guaifenesin. Start incentive spirometry DVT prevention: Lovenox Problem Qualifiers (1) Leucocytosis: Qualified Code: D72.829 - Leukocytosis, unspecified type Barrera Moore MD Sep 08, 2016 12:16
[2016-09-09] VITALS: BP 126/71; PULSE 78; RESP 18; TEMP 96.6; O2SAT 96
[2016-09-09] MEDS: RESP: ALBUTEROL 2.5 MG/IPRATROPIUM 0.5 MG NEB (PRN) NEB (03:45)
[2016-09-09 04:00] VITALS: BP 124/70; PULSE 79; RESP 18; TEMP 96.5; O2SAT 96
[2016-09-09 05:22] LABS: AUTOMATED NEUTROPHIL # 6.9 TH/MM3 (1.8-7.7); BASOPHIL % 0.3 % (0.0-2.0); EOSINOPHIL % 0.5 % (0.0-4.0); HEMATOCRIT 37.1 % (35.0-46.0); HEMO FLAGS DIFF FINAL; LYMPH % 2.6 % (9.0-44.0); LYMPHOCYTE # 0.2 TH/MM3 (1.0-4.8); MEAN CELL VOLUME 91.1 FL (80.0-100.0); MEAN CORPUSCULAR HGB CONC 32.9 % (32.0-36.0); NEUT % 94.6 % (16.0-70.0); PLATELET COUNT 336 TH/MM3 (150-450); RED BLOOD COUNT 4.07 MIL/MM3 (4.00-5.30); RED CELL DISTRIBUTION WIDTH 12.8 % (11.6-17.2); WHITE BLOOD COUNT 7.2 TH/MM3 (4.0-11.0)
[2016-09-09] MEDS: methylPREDNISolone SOD SUCC 40 MG/1 ML VIAL IV PUSH SCH (05:47)
[2016-09-09] MEDS: SODIUM CHLORIDE 0.9% FLUSH 5 ML FLUSH FLUSH PRN (05:48)
[2016-09-09] MEDS: RESP: ALBUTEROL 2.5 MG/IPRATROPIUM 0.5 MG NEB (SCH) NEB ×2 (07:30→11:55)
[2016-09-09 08:00] VITALS: BP 142/75; PULSE 87; RESP 20; TEMP 96.4; O2SAT 92
[2016-09-09] MEDS ORDERED: LEVOFLOXACIN 750 MG PREMIX INJ 150 ML IV SCH (08:00)
[2016-09-09] MEDS: BUDESONIDE-FORMOTEROL 160/4.5 MCG INHALER INH SCH (08:10)
[2016-09-09] MEDS: guaiFENesin E.R. 600 MG TAB PO SCH (08:10)
[2016-09-09] MEDS: SODIUM CHLORIDE 0.9% FLUSH 5 ML FLUSH FLUSH SCH (08:11)
[2016-09-09] MEDS ORDERED: LEVOFLOXACIN 500 MG PREMIX INJ 100 ML IV SCH (09:00)
[2016-09-09] MEDS ORDERED: PRED10 PO (10:08)
[2016-09-09] MEDS ORDERED: LEVA500T PO (10:08)
--- NOTE | 2016-09-09 10:31 | HHI.DS ---
Discharge Summary Admission Date Sep 06, 2016 at 21:22 Discharge Date: Sep 09, 2016 Admitting Diagnosis exacerbation COPD acute on chronic respiratory failure bronchitis PNA (1) Systemic inflammatory response syndrome ICD Code: R65.10 Diagnosis: Principal (2) COPD with acute exacerbation ICD Code: J44.1 Diagnosis: Principal (3) Leucocytosis ICD Code: D72.829 Diagnosis: Principal Procedures None Brief History - From Admission 81-year-old female with known history of chronic respiratory failure, chronic obstructive pulmonary disease, lung mass who is followed by Dr. valle in outpatient setting who presented to the hospital because of shortness of breath and dyspnea. Patient states that she came to emergency department a week ago for her shortness of breath and dyspnea. She was started on Zithromax , prednisone and she states that she finished the medication and she was not completely improved so she came back to the hospital for evaluation. She indicates that she did try calling her race board attendant however she told me that they're on vacation. Patient does have chronic respiratory failure on oxygen at home at least 2 L at night and on exertion, she states that she has not been wearing it continuously since her recent bronchitis/COPD exacerbation. Because she did not get any better after taken the Zithromax for 5 days she came back to the hospital for evaluation. There is a documented 89% O2 saturation on 2 L. Because the patient had tachycardia, tachypnea, leukocytosis is recommended by ER physician that patient be admitted for systemic inflammatory response syndrome and COPD exacerbation. Patient does admit to shortness of breath, dyspnea with is been going on for over 2 weeks. She has not been in contact with her race board attendant for outpatient recommendations. She has had a cough with no phlegm production. Denies any chest pain, nausea, vomiting, diaphoresis , chills, night sweats, hemoptysis. CBC/BMP: 09/09/16 0446 09/08/16 0500 Significant Findings Laboratory Tests Test 09/06/16 09/07/16 09/07/16 09/08/16 19:55 06:02 20:45 05:00 White Blood Count 14.0 TH/MM3 (4.0-11.0) Neutrophils (%) (Auto) 90.7 % 97.4 % 96.8 % (16.0-70.0) (16.0-70.0) (16.0-70.0) Lymphocytes (%) (Auto) 2.7 % 1.6 % 1.9 % (9.0-44.0) (9.0-44.0) (9.0-44.0) Basophils (%) (Auto) 3.9 % (0.0-2.0) Neutrophils # (Auto) 12.7 TH/MM3 8.9 TH/MM3 8.3 TH/MM3 (1.8-7.7) (1.8-7.7) (1.8-7.7) Lymphocytes # (Auto) 0.4 TH/MM3 0.1 TH/MM3 0.2 TH/MM3 (1.0-4.8) (1.0-4.8) (1.0-4.8) Basophils # (Auto) 0.5 TH/MM3 (0-0.2) Sodium Level 134 MEQ/L (136-145) Chloride Level 91 MEQ/L 93 MEQ/L 94 MEQ/L (98-107) (98-107) (98-107) Carbon Dioxide Level 36.5 MEQ/L 40.3 MEQ/L 38.4 MEQ/L (21.0-32.0) (21.0-32.0) (21.0-32.0) Random Glucose 132 MG/DL 127 MG/DL 123 MG/DL (74-106) (74-106) (74-106) Troponin I LESS THAN 0.02 NG/ML (0.02-0.05) Anion Gap 4 MEQ/L (5-15) Creatinine 0.49 MG/DL 0.48 MG/DL (0.50-1.00) (0.50-1.00) Aspartate Amino Transf 8 U/L (15-37) (AST/SGOT) Albumin 2.7 GM/DL (3.4-5.0) Urine Protein 30 mg/dL (NEG-TRACE) Urine Squamous Epithelial 6-8 /hpf (0-5) Cells Urine Mucus FEW /lpf (OCC) Test 09/09/16 04:46 Neutrophils (%) (Auto) 94.6 % (16.0-70.0) Lymphocytes (%) (Auto) 2.6 % (9.0-44.0) Lymphocytes # (Auto) 0.2 TH/MM3 (1.0-4.8) Imaging Last 72 hours Impressions Chest X-Ray 09/06/161937 Signed Impressions: Service Date/Time: Tuesday, September 06, 2016 20:04 - CONCLUSION: COPD with bibasilar atelectasis/infiltrates. Ata Lima MD PE at Discharge - - GENERAL: This frail elderly patient, in mild distress mostly due to anxiety SKIN: No rashes, warm and dry HEAD: Atraumatic. Normocephalic. EYES: Pupils equal round and reactive. Extraocular motions intact. No scleral icterus. ENT: Nose without bleeding, or drainage, Airway patent. NECK: Trachea midline. Supple CARDIOVASCULAR: Regular rate and rhythm without murmurs, gallops, or rubs. RESPIRATORY: Positive wheezes bilaterally with few fine crackles at the base. GASTROINTESTINAL: Abdomen soft, non-tender, nondistended. Positive bowel sounds MUSCULOSKELETAL: Extremities without clubbing, cyanosis, or edema. Pedal pulses appreciated NEUROLOGICAL: Awake and alert. Moves all extremity. Normal speech.no focal neurological deficit Pt update on day of discharge Patient feeling much improved today. Less cough with resolution of greenish sputum production. Increased energy. Good appetite. Hospital Course Patient admitted with a systemic inflammatory response syndrome secondary to COPD exacerbation and suspected superimposed pneumonia. Patient presented with leukocytosis and tachycardia. Chest x-ray revealed bibasilar atelectasis/ infiltrates. Patient was started on IV Levaquin for antibiotic coverage, DuoNeb treatments and Solu-Medrol. Patient was also continued on Symbicort and guaifenesin. Patient has oxygen at home. Patient improved and felt stable to go home. Pt Condition on Discharge: Stable Discharge Disposition: Discharge Home Discharge Time: <= 30 minutes Discharge Instructions DIET: Follow Instructions for: Heart Healthy Diet Activities you can perform: Regular-No Restrictions Follow up Referrals: PCP Follow-up - 1 Week New Medications: Levofloxacin (Levaquin) 500 Mg Tab 500 MG PO DAILY Infection #5 Ref 0 TAB Prednisone (Prednisone) 10 Mg Tab 10 MG PO DAILY Take 4 tabs po BID x 2 days, then take 4 tabs po q day x 2 days, then take 3 tabs po q day x 2 days, then take 2 tabs po q day x 2 days, then take 1 tab po q day x 2 days, then discontinue Wheezing #36 Ref 0 TAB Continued Medications: Albuterol Neb (Albuterol Neb) 1.25 Mg/3 Ml Neb 1.25 MG NEB Q4HR PRN SHORTNESS OF BREATH #50 Ref 0 NEBULE Estradiol (Estrace) 1 Mg Tab 1 MG PO DAILY Estrogen Supplements #30 Ref 0 TAB Fluticasone-Salmeterol Inh (Advair Diskus Inh) 250-50 Mcg/Blist Aer 1 PUFF INH BID Rinse mouth after use. #1 Ref 0 INHALER Prednisolone Acetate Opth Drops (Pred Forte Opth Drops) 1% Susp 1 DROP RIGHT EYE MWF Inflammation #1 Ref 0 BOTTLE Tiotropium Inh (Spiriva Handihaler) 18 Mcg Cap 18 MCG INH DAILY 1 capsule = 18 mcg COPD #30 Ref 0 CAP Discontinued Medications: Azithromycin (Zithromax Z-Gama) 250 Mg Dspk 250 MG PO DIRECTED 500 MG (2 tabs) day 1, then 1 tab days 2-5. Infection #1 DSPK Prednisone (Prednisone) 20 Mg Tab 20 MG PO BID #10 TAB Additional Information Please follow up with Dr. Valle per your previously scheduled appointment regarding your lung mass. Written by Maribel Blakely, acting as scribe for Dr. Moore on 09/09/16 at 9:30. Maribel Blakely Sep 09, 2016 10:31 Barrera Moore MD Sep 09, 2016 11:15
[2016-09-09] MEDS ORDERED: LEVA250T PO (13:15)
== END 2016-09-09 14:18 | disposition home or self-care (01) | DRG 189 ==
LOC: PHED 19:33 → PHEDA 21:04 → OBSVTOIN 21:22 → PH3A 23:13
PROVIDERS: ADMIT Hospitalist; ATTEND Hospitalist
DX: J96.21 Acute and chronic respiratory failure with hypoxia (principal); J18.9 Pneumonia, unspecified organism; R65.10 Systemic inflammatory response syndrome (SIRS) of non-infectious origin without acute organ dysfunction; Z99.81 Dependence on supplemental oxygen; J44.0 Chronic obstructive pulmonary disease with (acute) lower respiratory infection; J44.1 Chronic obstructive pulmonary disease with (acute) exacerbation; J98.11 Atelectasis; R91.8 Other nonspecific abnormal finding of lung field; J45.909 Unspecified asthma, uncomplicated; F41.9 Anxiety disorder, unspecified; H40.9 Unspecified glaucoma; Z85.828 Personal history of other malignant neoplasm of skin; Z88.1 Allergy status to other antibiotic agents; Z92.21 Personal history of antineoplastic chemotherapy; Z92.3 Personal history of irradiation; Z87.891 Personal history of nicotine dependence
CPT/HCPCS: 71010; 80048; 80053; 81001; 83735; 83880; 84484; 85025; 87040; 87070; 87077; 87186; 87205; 93005; 94150; 94640; 94664; 96374; J1956; J2543; J2920; J2930

== ENCOUNTER 2016-09-19 14:48 | Emergency (ER) | payer MEDICARE, BC ==
[~2016-09-19 14:48] MED LIST changes: +LEVA250T PO; +PRED10 PO; -PRED1SUS EACH EYE; +PRED1SUS RIGHT EYE; -PRED20 PO; +SPIRCAP INH; -ZITHTAB PO
[2016-09-19 15:00] VITALS: O2SAT 88
[2016-09-19] MEDS ORDERED: SODIUM CHLORIDE 0.9% FLUSH 10 ML FLUSH IVF PRN (15:15)
[2016-09-19] MEDS ORDERED: methylPREDNISolone SOD SUCC 125 MG/2 ML VIAL IVP ONE (15:15)
--- NOTE | 2016-09-19 15:16 | PD ---
HPI Chief Complaint: Respiratory Symptoms Time Seen by Provider: 15:04 Travel History International Travel<30 days: No Contact w/Intl Traveler<30days: No Traveled to known affect area: No History of Present Illness HPI The patient was seen and examined in the presence of the nurse. This patient arrives short of breath. sHe is hypoxic on room air. She has history of COPD. She's been congestion and wheezing for the last 3 days. Symptoms are severe. No alleviating factors. No chest pain. No presyncopal symptoms. Denies productive cough or fever. PFSH Past Medical History Asthma: Yes Autoimmune Disease: No Blood Disorders: No Anxiety: No Depression: No Cancer: Yes (SKIN CANCER) Cardiovascular Problems: No High Cholesterol: No Chemotherapy: Yes (2013) COPD: Yes Diminished Hearing: No Endocrine: No Gastrointestinal Disorders: No Glaucoma: Yes Genitourinary: No Immune Disorder: No Implanted Vascular Access Dvce: No Musculoskeletal: Yes Neurologic: No Psychiatric: No Reproductive: No Respiratory: Yes Radiation Therapy: Yes (1943 or 49 childhood.) Shingles: Yes Menopausal: Yes Past Surgical History Abdominal Surgery: Yes (CHOLEYSYSTECTOMY, APPENDECTOMY) Appendectomy: Yes Cardiac Surgery: No Cholecystectomy: Yes Ear Surgery: No Eye Surgery: Yes (RT CORNEA TRANSPLANT, CATARACT) Genitourinary Surgery: Yes Gynecologic Surgery: Yes (HYSTERECTOMY) Hysterectomy: Yes Joint Replacement: Yes (screws and metal plate in RUE.) Neurologic Surgery: No Oral Surgery: Yes (TONSILS AND ADNOIDS REMOVED) Pacemaker: No Thoracic Surgery: Yes ( LUNG BIOPSY, REMOVED NODULE 2006) Tonsillectomy: Yes Other Surgery: Yes (NODULE REMOVED FROM L LUNG IN OCTOBER 26) Social History Alcohol Use: Yes (OCC) Tobacco Use: No Substance Use: No Allergies-Medications (Allergen,Severity, Reaction): Coded Allergies: Percocet (Verified Allergy, Severe, NAUSEA, 09/17/16) Uncoded Allergies: ANTIBIOTICS THAT START WITH THE LETTER C (Allergy, Mild, ?, 01/05/12) PT CAN NOT REMEMBER THE NAME OF THE ANTIBIOTIC BUT STATES THAT IT GAVE HER UPSET STOMACH AND IT STARTED WITH LETTER C Reported Meds & Prescriptions Reported Meds & Active Scripts Active Albuterol Neb (Albuterol Sulfate) 1.25 Mg/3 Ml Neb 1.25 Mg NEB Q4HR PRN Reported Spiriva Handihaler (Tiotropium Inh) 18 Mcg Cap 18 Mcg INH DAILY 1 capsule = 18 mcg Pred Forte Opth Drops (Prednisolone Acetate Opth Drops) 1% Susp 1 Drop RIGHT EYE MWF Estrace (Estradiol) 1 Mg Tab 1 Mg PO DAILY Advair Diskus Inh (Fluticasone-Salmeterol Inh) 250-50 Mcg/Blist Aer 1 Puff INH BID Rinse mouth after use. Review of Systems General / Constitutional: No: Fever Eyes: No: Visual changes HENT: Positive: Congestion, No: Headaches Cardiovascular: No: Chest Pain or Discomfort Respiratory: Positive: Cough, Shortness of Breath, Wheezing Gastrointestinal: No: Abdominal Pain Genitourinary: No: Dysuria Musculoskeletal: No: Pain Skin: No Rash Neurologic: No: Weakness Psychiatric: No: Depression Endocrine: No: Polydipsia Hematologic/Lymphatic: No: Easy Bruising Physical Exam Narrative GENERAL: Frail elderly well-developed patient in respiratory distress. SKIN: Focused skin assessment reveals no rash and nodules. Skin is Warm and dry. HEAD: Atraumatic. Normocephalic. EYES: Pupils equal and round. No scleral icterus. No injection or drainage. ENT: No nasal bleeding or discharge. Mucous membranes pink and moist. NECK: Trachea midline. No JVD. CARDIOVASCULAR: Regular rate and rhythm. No murmur appreciated. RESPIRATORY: Positive accessory muscle use. Diminished breath sounds throughout with some rhonchi and expiratory wheeze. Breath sounds equal bilaterally. GASTROINTESTINAL: Abdomen soft, non-tender, nondistended. Hepatic and splenic margins not palpable. MUSCULOSKELETAL: No obvious deformities. No clubbing. No cyanosis. No edema. NEUROLOGICAL: Awake and alert. No obvious cranial nerve deficits. Motor grossly within normal limits. Normal speech. PSYCHIATRIC: Appropriate mood and affect; insight and judgment normal. Data Data Last Documented VS Vital Signs Date Time Temp Pulse Resp B/P Pulse Ox O2 Delivery O2 Flow Rate FiO2 09/19/16 16:38 98 121/65 95 09/19/16 15:37 Nasal Cannula 3.00 Orders Complete Blood Count With Diff (09/19/16 15:09) Basic Metabolic Panel (Bmp) (09/19/16 15:09) Iv Access Insert/Monitor (09/19/16 15:09) Ecg Monitoring (09/19/16 15:09) Oximetry (09/19/16 15:09) Oxygen Administration (09/19/16 15:09) Chest, Single Ap (09/19/16 15:09) Sodium Chloride 0.9% Flush (Ns Flush) (09/19/16 15:15) Methylprednisolone So Succ Inj (Solumedr (09/19/16 15:15) Albuterol-Ipratropium Neb (Duoneb Neb) (09/19/16 15:15) Labs Laboratory Tests Test 09/19/16 15:00 White Blood Count 14.1 TH/MM3 Red Blood Count 4.47 MIL/MM3 Hemoglobin 13.3 GM/DL Hematocrit 40.8 % Mean Corpuscular Volume 91.2 FL Mean Corpuscular Hemoglobin 29.7 PG Mean Corpuscular Hemoglobin 32.5 % Concent Red Cell Distribution Width 13.6 % Platelet Count 334 TH/MM3 Mean Platelet Volume 8.0 FL Neutrophils (%) (Auto) 88.3 % Lymphocytes (%) (Auto) 3.6 % Monocytes (%) (Auto) 5.8 % Eosinophils (%) (Auto) 0.1 % Basophils (%) (Auto) 2.2 % Neutrophils # (Auto) 12.5 TH/MM3 Lymphocytes # (Auto) 0.5 TH/MM3 Monocytes # (Auto) 0.8 TH/MM3 Eosinophils # (Auto) 0.0 TH/MM3 Basophils # (Auto) 0.3 TH/MM3 CBC Comment DIFF FINAL Differential Comment Sodium Level 138 MEQ/L Potassium Level 3.8 MEQ/L Chloride Level 96 MEQ/L Carbon Dioxide Level 37.6 MEQ/L Anion Gap 4 MEQ/L Blood Urea Nitrogen 22 MG/DL Creatinine 0.62 MG/DL Estimat Glomerular Filtration 93 ML/MIN Rate Random Glucose 120 MG/DL Calcium Level 8.9 MG/DL [facility] Medical Decision Making Medical Screen Exam Complete: Yes Emergency Medical Condition: Yes Medical Record Reviewed: Yes Differential Diagnosis Differential diagnosis includes COPD, asthma, pneumonia, bronchitis, CHF Narrative Course I have reviewed the patient's electronic medical record. Patient was discharged from this hospital 10 days ago for COPD exacerbation IV placed CBC is normal Metabolic profile is normal I reviewed her chest x-ray which shows COPD changes and some basilar atelectasis Extended cardiac monitoring shows sinus rhythm without ectopy I gave her series of 3 nebulizer treatments and IV Solu-Medrol Patient is oxygen dependent at home but only wearing it during the night. She is hypoxic on room air here. I placed her on 3 L nasal cannula and she is in the low 90s. She is supposed to be wearing 2.5 L at home. After the above has been done on recheck she is much more stable and improved. Multiple rechecks have been done At present she has saturation of 92% on room air although she is supposed to be on 2.5 L On her usual oxygen her saturations are excellent She feels well and up to go home and does not want to stay here I wrote her a prednisone course She has nebulizer and oxygen at home and will return if she worsens Critical Care Narrative Aggregate critical care time was 32 minutes. Time to perform other separately billable procedures was not included in the critical care time. My time did not include minutes spent treating any other patients simultaneously or on activities that did not directly contribute to the patient's treatment. The services I provided to this patient were to treat and/or prevent clinically significant deterioration that could result in: Cardiopulmonary arrest, hypoxemic respiratory failure, pulmonary collapse I provided critical care services requiring my management, as noted below: Chart data review, documentation time, medication orders and management, vital sign assessments/reviewing monitor data, ordering and reviewing lab tests, ordering and interpreting/reviewing x-rays and diagnostic studies, care of the patient and discussion of the patient with the admitting physicians. Diagnosis Primary Impression: Respiratory failure Qualified Code: J96.01 - Acute respiratory failure with hypoxia Additional Impression: COPD with acute exacerbation Additional Instructions: The patient was advised to follow up with their physician and return if they worsen. The patient was warned about potential sedation for the medications they will receive on prescription. Med/Other Pt SpecificInfo: Prescription(s) given Disposition: DISCHARGE HOME Condition: Stable Dany Gonzalez MD Sep 19, 2016 15:16
[2016-09-19 15:27] LABS: AUTOMATED NEUTROPHIL # 12.5 TH/MM3 (1.8-7.7); BASOPHIL # 0.3 TH/MM3 (0-0.2); BASOPHIL % 2.2 % (0.0-2.0); EOSINOPHIL % 0.1 % (0.0-4.0); HEMATOCRIT 40.8 % (35.0-46.0); HEMO FLAGS DIFF FINAL; LYMPH % 3.6 % (9.0-44.0); LYMPHOCYTE # 0.5 TH/MM3 (1.0-4.8); MEAN CELL VOLUME 91.2 FL (80.0-100.0); MEAN CORPUSCULAR HEMOGLOBIN 29.7 PG (27.0-34.0); MEAN CORPUSCULAR HGB CONC 32.5 % (32.0-36.0); MONO % 5.8 % (0.0-8.0); NEUT % 88.3 % (16.0-70.0); PLATELET COUNT 334 TH/MM3 (150-450); RED BLOOD COUNT 4.47 MIL/MM3 (4.00-5.30); RED CELL DISTRIBUTION WIDTH 13.6 % (11.6-17.2); WHITE BLOOD COUNT 14.1 TH/MM3 (4.0-11.0)
[2016-09-19 15:30] LABS: POTASSIUM 3.8 MEQ/L (3.5-5.1)
[2016-09-19] MEDS: RESP: ALBUTEROL 2.5 MG/IPRATROPIUM 0.5 MG NEB (SCH) INH (15:32)
[2016-09-19 15:34] LABS: BICARBONATE 37.6 MEQ/L (21.0-32.0)
[2016-09-19 15:37] VITALS: O2SAT 97
--- NOTE | 2016-09-19 15:38 | RADHPO ---
EXAM DATE/TIME: 09/19/2016 15:19 [facility] COMPARISON: CHEST SINGLE AP, September 06, 2016, 20:04. INDICATIONS : Shortness of breath. MEDICAL HISTORY : Chronic obstructive pulmonary disease. SURGICAL HISTORY : Appendectomy. Cholecystectomy. ORIF right humerus ENCOUNTER: Initial ACUITY: 2 days PAIN SCORE: 0/10 LOCATION: Bilateral chest FINDINGS: Minimal bibasilar parenchymal changes are noted worse on the left than the right. Heart and pulmonar y vascularity are normal. Portion of bony skeleton visualized reveals only degenerative changes and previous surgery. CONCLUSION: Hyperinflation with minimal bibasilar changes worse on the left than the right. Findings have progre ssed on the left. Mign Winter MD FACR on September 19, 2016 at 15:32 Board Certified Radiologist. This report was verified electronically.
[2016-09-19 16:38] VITALS: BP 121/65; PULSE 98; O2SAT 95
[2016-09-19] MEDS ORDERED: PRED10 PO (17:31)
[2016-09-19] MEDS ORDERED: PRED20 PO (17:31)
== END 2016-09-19 17:42 | disposition home or self-care (01) ==
LOC: PHED 14:48
DX: R09.2 Respiratory arrest (principal); J44.1 Chronic obstructive pulmonary disease with (acute) exacerbation; H40.9 Unspecified glaucoma; Z99.81 Dependence on supplemental oxygen
CPT/HCPCS: 71010; 80048; 85025; 94640; 94664; 96374; 99291; J2930

== ENCOUNTER → 2017-01-22 | Outpatient (CLI) | payer MEDICARE, BC ==
[~2017-01-22] MED LIST changes: -LEVA250T PO; +PRED20 PO
[2017-01-22 18:08] LABS: AUTOMATED NEUTROPHIL # 5.1 TH/MM3 (1.8-7.7); BASOPHIL % 0.7 % (0.0-2.0); EOSINOPHIL # 0.1 TH/MM3 (0-0.4); EOSINOPHIL % 1.3 % (0.0-4.0); HEMATOCRIT 38.4 % (35.0-46.0); HEMO FLAGS DIFF FINAL; LYMPH % 9.3 % (9.0-44.0); LYMPHOCYTE # 0.6 TH/MM3 (1.0-4.8); MEAN CELL VOLUME 93.7 FL (80.0-100.0); MEAN CORPUSCULAR HEMOGLOBIN 31.3 PG (27.0-34.0); MEAN CORPUSCULAR HGB CONC 33.4 % (32.0-36.0); MONO % 7.1 % (0.0-8.0); NEUT % 81.6 % (16.0-70.0); PLATELET COUNT 169 TH/MM3 (150-450); WHITE BLOOD COUNT 6.2 TH/MM3 (4.0-11.0)
[2017-01-22 18:24] LABS: ANION GAP 5 MEQ/L (5-15); AST (GOT) 15 U/L (15-37); BICARBONATE 35.1 MEQ/L (21.0-32.0); BLOOD UREA NITROGEN 16 MG/DL (7-18); CHLORIDE 96 MEQ/L (98-107); GLOMERULAR FILTRATION RATE 76 ML/MIN (>89); GLUCOSE,FASTING 86 MG/DL (74-99); POTASSIUM 4.5 MEQ/L (3.5-5.1); SODIUM (NA) 136 MEQ/L (136-145)
[2017-01-22 18:35] LABS: ALKALINE PHOSPHATASE 86 U/L (45-117); ALT (GPT) 18 U/L (10-53); TOTAL BILIRUBIN ADULT 0.4 MG/DL (0.2-1.0)
== END ==
LOC: PLAB 14:47
PROVIDERS: ATTEND Nurse Practitioner Family
DX: R41.0 Disorientation, unspecified (principal)
CPT/HCPCS: 36415; 80053; 84443; 85025

== ENCOUNTER 2018-05-19 16:35 | Inpatient (IN) ==
[2018-05-19] MEDS ORDERED: Ketorolac Inj 30 MG/ML (IVP) Vial IV.PUSH ONE (16:53)
--- NOTE | 2018-05-19 16:59 | ED ---
HPI General Chief Complaint: Shortness of Breath/Dyspnea Stated Complaint: SOB Time Seen by Provider: 05/19/18 16:46 History of Present Illness HPI Narrative: Recent presents with history of shortness of breath all day. Patient has history of anxiety and stress and has had hyperventilation syndrome in the past. Patient has long history of COPD and that is her primary problem other than atrial fibrillation. Patient has refused medical evaluation since this morning. No complaint of chest pain but patient complains of back pain. Related Data Home Medications Medication Instructions Recorded Confirmed fluticasone-salmeterol [Advair 1 inh INHALATION Q12H 05/04/18 05/19/18 Diskus] prednisolone acetate [Pred Forte] 2 drp OPHTHALMIC (EYE) EVERY OTHER 05/04/18 DAY tiotropium bromide [Spiriva 2 puff INHALATION DAILY 05/04/18 05/19/18 Respimat] citalopram 5 mg PO DAILY 05/19/18 05/19/18 Previous Rx's Medication Instructions Recorded albuterol sulfate 2 inh INHALATION Q4-6H PRN #18 g 05/04/18 Allergies Allergy/AdvReac Type Severity Reaction Status Date / Time acetaminophen Allergy Severe NAUSEA Verified 05/19/18 17:06 oxycodone Allergy Severe NAUSEA Verified 05/19/18 17:06 Review of Systems ROS: all other systems reviewed are negative [facility] Medical History Medical History COPD exacerbation (Chronic) Social History Social History Substance History: No History of Abuse Smoking Status: Unknown if ever smoked How Often Do You Have a Drink Containing Alcohol: Never Recent Travel in [facility] within the Last 8 Weeks: No Recent Out of Country Travel within the Last 8 Weeks: No Exam Narrative Exam Narrative: GENERAL: Increased respiratory distress with tachypnea and tachycardia. SKIN: Focused skin assessment warm/dry. Pale HEAD: Atraumatic. Normocephalic. EYES: Pupils equal and round. No scleral icterus. No injection or drainage. ENT: No nasal bleeding or discharge. Mucous membranes pink and moist. NECK: Trachea midline. No JVD. CARDIOVASCULAR: Irregular rhythm. No murmur appreciated. RESPIRATORY: Decreased breath sounds bilaterally with crepitant rales diffusely on right side. Decreased breath sounds on the left. No tussive rhonchi tachypnea GASTROINTESTINAL: Abdomen soft, non-tender, nondistended. Hepatic and splenic margins not palpable. MUSCULOSKELETAL: No obvious deformities. No clubbing. No cyanosis. No edema. NEUROLOGICAL: Awake and alert. No obvious cranial nerve deficits. Motor grossly within normal limits. Normal speech. PSYCHIATRIC: Appropriate mood and affect; insight and judgment normal. Course Reevaluation(s) Reevaluation #2: Daughter who is the medical surrogate for this patient was called and will be coming in to sign papers for DNR and palliative care Time: 20:00 Reevaluation #3: ABG shows pH of 7.23 and PaCO2 of 102 and PaO2 of 69 on 40% oxygen. Case discussed with patient's daughter who has medical responsibility for decisions for her mother who said her mother would want to comfortably without aggressive intervention to include no intubation or CPR. Daughter is in the process of coming in to formalize this decision. Time: 20:23 Initial Documented Vital Signs Pulse Oximetry 98 05/19/18 16:46 Last Documented Vital Signs Temperature 97.9 F 05/19/18 17:10 Pulse Rate 82 05/19/18 19:25 Respiratory Rate 24 05/19/18 18:36 Blood Pressure 108/57 L 05/19/18 19:25 Pulse Oximetry 94 L 05/19/18 19:25 Critical Care Time Critical Care Time: Yes Total Critical Care Time: 120 Attestation: Not necessary Medical Decision Making MDM Narrative Medical decision making narrative: Patient is presently on BiPAP with abnormal blood gases that would require intubation, except for my acceptance of the daughters statement that she is a surrogate to make decisions for her mother. Mother also decided that she did not want aggressive care that would require intubation or CPR. I have signed a DNR and the daughter is coming in with the will and will finalize this DNR order. I had discussed personally with this daughter who appeared to be loving and caring for her mother, on her presentation to the emergency department for care. Medical Screen Exam Complete: Yes Emergency Medical Condition: Yes Lab Data Result diagrams: 05/19/18 16:40 05/19/18 16:40 Lab Results 05/19/18 05/19/18 05/19/18 Range/Units 16:40 16:40 16:40 CBC w Diff Slide review pending WBC 19.6 H (4.0-11.0) th/mm3 RBC 4.42 (4.00-5.30) mil/mm3 Hgb 13.6 (11.6-15.3) gm/dL Hct 43.0 (35.0-46.0) % MCV 97.3 (80.0-100.0) fL MCH 30.8 (27.0-34.0) pg MCHC 31.7 L (32.0-36.0) % RDW 14.4 (11.6-17.2) % Plt Count 184 D (150-450) th/mm3 MPV 10.6 (7.0-11.0) fL Neut % (Auto) 90.1 H (16.0-70.0) % Lymph % (Auto) 1.2 L (9.0-44.0) % Weakley % (Auto) 4.3 (0.0-8.0) % Eos % (Auto) 0.0 (0.0-4.0) % Baso % (Auto) 4.4 H (0.0-2.0) % Neut # (Auto) 17.7 H (1.8-7.7) th/mm3 Lymph # (Auto) 0.2 L (1.0-4.8) th/mm3 Weakley # (Auto) 0.8 (0.0-0.9) th/mm3 Eos # (Auto) 0.0 (0.0-0.4) th/mm3 Baso # (Auto) 0.9 H (0.0-0.2) th/mm3 WBC Differential Manual diff final Seg Neuts % (Manual) 78 H (16-70) % Band Neuts % (Manual) 12 H (0-6) % Lymphocytes % (Manual) 2 L (9-44) % Monocytes % (Manual) 7 (0-8) % Metamyelocytes % (Man) 1 (0-1) % Abs Neuts (Manual) 17.8 H (1.8-7.7) th/mm3 Differential Comment . Platelet Estimate Normal (Normal) Platelet Morphology Enlarged H (Normal) Ovalocytes 1+ H (None) PT 10.4 (9.8-11.6) sec INR 1.0 Ratio APTT 30.2 (23.4-31.7) sec Sodium 133 L (136-145) meq/L Potassium 4.6 (3.5-5.1) meq/L Chloride 91 L (98-107) meq/L Carbon Dioxide 40.3 H (21.0-32.0) meq/L Anion Gap 2 L (5-15) meq/L BUN 19 H (7-18) mg/dL Creatinine 0.59 (0.50-1.00) mg/dL Estimated GFR Greater than 89 (>89) mL/min Random Glucose 212 H (74-106) mg/dL Lactic Acid (0.4-2.0) mmol/L Calcium 9.0 (8.5-10.1) mg/dL Total Bilirubin 0.5 (0.2-1.0) mg/dL AST 18 (15-37) U/L ALT 28 (10-53) U/L Alkaline Phosphatase 84 (45-117) U/L Troponin I Less than 0.02 L (0.02-0.05) ng/mL B-Natriuretic Peptide (0-100) pg/mL Total Protein 7.8 (6.4-8.2) g/dL Albumin 3.6 (3.4-5.0) g/dL Urine Color (Yellw/Straw) Urine Clarity (Clear) Urine pH (5.0-8.5) Ur Specific Linn (1.002-1.035) Urine Protein (Neg-Trace) mg/dL Urine Glucose (UA) (Negative) mg/dL Urine Ketones (Negative) mg/dL Urine Occult Blood (Negative) Urine Nitrate (Negative) Urine Bilirubin (Negative) Urine Urobilinogen (Less than 2) mg/dL Ur Leukocyte Esterase (Negative) Urine RBC (0-3) /hpf Urine WBC (0-5) /hpf Ur Squamous Epith Cells (0-5) /hpf Urine Bacteria (None) /hpf Hyaline Casts (0-3) /lpf Urine Mucus (Occasional) /lpf Micro UA Comment Ur Microscopic Review Urine Culture Comments 05/19/18 05/19/18 05/19/18 Range/Units 16:40 17:35 19:25 CBC w Diff WBC (4.0-11.0) th/mm3 RBC (4.00-5.30) mil/mm3 Hgb (11.6-15.3) gm/dL Hct (35.0-46.0) % MCV (80.0-100.0) fL MCH (27.0-34.0) pg MCHC (32.0-36.0) % RDW (11.6-17.2) % Plt Count (150-450) th/mm3 MPV (7.0-11.0) fL Neut % (Auto) (16.0-70.0) % Lymph % (Auto) (9.0-44.0) % Weakley % (Auto) (0.0-8.0) % Eos % (Auto) (0.0-4.0) % Baso % (Auto) (0.0-2.0) % Neut # (Auto) (1.8-7.7) th/mm3 Lymph # (Auto) (1.0-4.8) th/mm3 Weakley # (Auto) (0.0-0.9) th/mm3 Eos # (Auto) (0.0-0.4) th/mm3 Baso # (Auto) (0.0-0.2) th/mm3 WBC Differential Seg Neuts % (Manual) (16-70) % Band Neuts % (Manual) (0-6) % Lymphocytes % (Manual) (9-44) % Monocytes % (Manual) (0-8) % Metamyelocytes % (Man) (0-1) % Abs Neuts (Manual) (1.8-7.7) th/mm3 Differential Comment Platelet Estimate (Normal) Platelet Morphology (Normal) Ovalocytes (None) PT (9.8-11.6) sec INR Ratio APTT (23.4-31.7) sec Sodium (136-145) meq/L Potassium (3.5-5.1) meq/L Chloride (98-107) meq/L Carbon Dioxide (21.0-32.0) meq/L Anion Gap (5-15) meq/L BUN (7-18) mg/dL Creatinine (0.50-1.00) mg/dL Estimated GFR (>89) mL/min Random Glucose (74-106) mg/dL Lactic Acid 1.5 (0.4-2.0) mmol/L Calcium (8.5-10.1) mg/dL Total Bilirubin (0.2-1.0) mg/dL AST (15-37) U/L ALT (10-53) U/L Alkaline Phosphatase (45-117) U/L Troponin I (0.02-0.05) ng/mL B-Natriuretic Peptide 54 (0-100) pg/mL Total Protein (6.4-8.2) g/dL Albumin (3.4-5.0) g/dL Urine Color Yellow (Yellw/Straw) Urine Clarity Clear (Clear) Urine pH 6.0 (5.0-8.5) Ur Specific Linn Greater/equal 1.030 (1.002-1.035) Urine Protein 100 H (Neg-Trace) mg/dL Urine Glucose (UA) 250 H (Negative) mg/dL Urine Ketones Negative (Negative) mg/dL Urine Occult Blood Trace (Negative) Urine Nitrate Negative (Negative) Urine Bilirubin Negative (Negative) Urine Urobilinogen 1.0 (Less than 2) mg/dL Ur Leukocyte Esterase Negative (Negative) Urine RBC 0-3 (0-3) /hpf Urine WBC 9-20 H (0-5) /hpf Ur Squamous Epith Cells 0-5 (0-5) /hpf Urine Bacteria Few H (None) /hpf Hyaline Casts 0-3 (0-3) /lpf Urine Mucus Many H (Occasional) /lpf Micro UA Comment Cath-culture ind Ur Microscopic Review Microscopic reviewed Urine Culture Comments Cath-cult indicated Imaging Data Radiologist's impression: Chest CTA 05/19/18 18:06 CONCLUSION: 1. No evidence of acute pulmonary embolism. The pulmonary arteries remain prominent most characteristic of pulmonary hypertension. 2. New soft tissue irregular nodule in the right lower lobe which is nonspecific but of concern for possible early primary lung cancer. Given the size further evaluation with PET/CT is recommended. 3. Underlying emphysema, bronchiectasis and scarring again noted with no significant change in the cavitary lesion in the right upper lobe. Discharge Plan Discharge Disposition Patient Disposition: 30 Still Patient Discharge Condition Condition: Critical Discharge Details Diagnosis: Acute respiratory distress, Pneumonia, COPD with acute exacerbation Physicians Team ED Provider: Oneal Meyer Primary Care Provider: Alayna Riley Attending Provider: Tatum Avila Discharge Interventions Interventions: Vital Signs Last Done: 05/19/18 19:25 Status ED Status: Admitted Patient
[2018-05-19 17:15] VITALS: TEMP 97.9
[2018-05-19 17:17] LABS: Chloride 91 meq/L (98-107); Potassium 4.6 meq/L (3.5-5.1); Sodium 133 meq/L (136-145)
[2018-05-19 17:20] LABS: Albumin 3.6 g/dL (3.4-5.0); Anion Gap 2 meq/L (5-15); Carbon Dioxide 40.3 meq/L (21.0-32.0); Glucose,Random 212 mg/dL (74-106)
[2018-05-19 17:21] LABS: Blood Urea Nitrogen 19 mg/dL (7-18)
[2018-05-19 17:22] LABS: Activated Partial Thrombo Time 30.2 sec (23.4-31.7); Prothrombin Time 10.4 sec (9.8-11.6)
[2018-05-19 17:24] LABS: Alanine Aminotransferase 28 U/L (10-53); Aspartate Aminotransferase 18 U/L (15-37); Glomerular Filtration Rate Greater Than 89 mL/min (>89)
[2018-05-19 17:25] LABS: Total Protein 7.8 g/dL (6.4-8.2)
[2018-05-19 17:26] LABS: Alkaline Phosphatase 84 U/L (45-117); Baso # (Auto) 0.9 th/mm3 (0.0-0.2); Baso % (Auto) 4.4 % (0.0-2.0); Hemoglobin 13.6 gm/dL (11.6-15.3); Lymph # (Auto) 0.2 th/mm3 (1.0-4.8); Lymph % (Auto) 1.2 % (9.0-44.0); Mean Corpuscular HGB Conc 31.7 % (32.0-36.0); Mean Corpuscular Hemoglobin 30.8 pg (27.0-34.0); Mean Corpuscular Volume 97.3 fL (80.0-100.0); Mean Platelet Volume 10.6 fL (7.0-11.0); Mono # (Auto) 0.8 th/mm3 (0.0-0.9); Mono % (Auto) 4.3 % (0.0-8.0); Neut # (Auto) 17.7 th/mm3 (1.8-7.7); Neut % (Auto) 90.1 % (16.0-70.0); Platelet Count 184 th/mm3 (150-450); Red Blood Count 4.42 mil/mm3 (4.00-5.30); Red Cell Distribution Width 14.4 % (11.6-17.2); White Blood Count 19.6 th/mm3 (4.0-11.0)
[2018-05-19] MEDS ORDERED: Azithromycin Inj 500 MG in Sodium Chlor 0.9% Inj 250 ML IV.SIG ONE (17:40)
[2018-05-19 18:01] LABS: Lymphocytes 2 % (9-44); Metamyelocytes 1 % (0-1); Monocytes 7 % (0-8); Ovalocytes 1+; Platelet Estimate Normal (Normal)
[2018-05-19] MEDS ORDERED: Sodium Chlor 0.9% Inj 500 ML IV.CONT SCH (19:00)
--- NOTE | 2018-05-19 19:25 | CT ---
EXAM DATE: 05/19/2018 7:13 PM EST AGE/SEX: 83 years / Female INDICATIONS: Respiratory distress. Chest pain. Patient with known emphysema and history of right cav itary lesion. CLINICAL DATA: This is the patient's initial encounter. Patient reports that signs and symptoms have been present for 3 days and indicates a pain score of 10/10. MEDICAL/SURGICAL HISTORY: Chronic obstructive pulmonary disease. None. RADIATION DOSE: 6.22 CTDI (mGy) COMPARISON: [facility], CT PULMONARY ANGIOGRAM, 05/17/2016. . TECHNIQUE: Volumetric scanning was performed using a multi-row detector CT scanner during bolus infu ariana of 75 ml Omnipaque 350 (iohexol) nonionic water-soluble contrast as a single exam dose. The jose manuel a was post processed with a variety of visualization algorithms including full volume maximum intensi ty projection and sliding thin slab reformation. Using automated exposure control and adjustment of t he mA and/or kV according to patient size, radiation dose was kept as low as reasonably achievable to obtain optimal diagnostic quality images. DICOM format image data is available electronically for r eview and comparison. FINDINGS: Pulmonary Arteries: No filling defects are seen in the pulmonary arteries out to the subsegmental ve ssels. The left and right pulmonary arteries are normal in diameter. Pulmonary arteries remain promi nent. Lung: Underlying emphysema is again noted. A cavitary lesion is again noted in the right upper lobe without significant change. There is diffuse bullous changes. Bronchiectasis is again noted greatest in the right lower lobe. There are scattered areas of scarring. There is a new irregular nodular area of opacity in the right lower lobe best seen on axial image #72. This measures up to 1.4 x 1.3 cm in diameter and is actually pleural-based. Effusion: None. Mediastinum: No evidence of mediastinal or hilar adenopathy. Other: The axilla is unremarkable. Cyst is again noted in the left kidney. CONCLUSION: 1. No evidence of acute pulmonary embolism. The pulmonary arteries remain prominent most characteris tic of pulmonary hypertension. 2. New soft tissue irregular nodule in the right lower lobe which is nonspecific but of concern for possible early primary lung cancer. Given the size further evaluation with PET/CT is recommended. 3. Underlying emphysema, bronchiectasis and scarring again noted with no significant change in the c avitary lesion in the right upper lobe. Electronically signed by: Jose Martin Sanchez MD 05/19/2018 7:24 PM EST
[2018-05-19 19:38] LABS: Bilirubin,Urine Negative (Negative); Clarity,Urine Clear (Clear); Color,Urine Yellow (Yellw/Straw); Glucose,Urine (UA) 250 mg/dL (Negative); Leukocyte Esterase,Urine Negative (Negative); Nitrite,Urine Negative (Negative); Specific Gravity,Urine Greater/Equal 1.030 (1.002-1.035)
[2018-05-19 19:43] LABS: RBC,Urine 0-3 /hpf (0-3)
[2018-05-19 19:44] LABS: Bacteria,Urine Few /hpf; Hyaline Casts,Urine 0-3 /lpf (0-3); Squamous Epithelial Cell,Urine 0-5 /hpf (0-5)
[2018-05-19 19:45] LABS: Mucus,Urine Many /lpf (Occasional)
[2018-05-19] MEDS ORDERED: Bisacodyl 10 MG Supp RECTAL PRN (20:39)
[2018-05-19] MEDS ORDERED: Acetaminophen 325 MG Tablet PO PRN (20:39)
[2018-05-19] MEDS ORDERED: Non-Formulary Drug (Fluticasone-Salmeterol [Advair Diskus] 1 INH) INHALATION SCH (20:45)
[2018-05-19] MEDS ORDERED: Sod Chloride 0.9% Inj 1,000 ML IV.CONT SCH (21:00)
[2018-05-19 21:09] LABS: ABG Base Excess 13.4 mmol/L (-2-2); ABG PCO2 102 mmHg (38-42); ABG PO2 69 mmHg (61-120)
[2018-05-19 21:52] VITALS: RESP 21
[2018-05-19 22:18] VITALS: BP 135/66; PULSE 71
[2018-05-20 01:32] VITALS: O2SAT 95
[2018-05-20] MEDS ORDERED: Budesonide-Formoterol 160/4.5 MCG 6 GM Inhaler INH SCH (09:00)
[2018-05-20] MEDS ORDERED: Citalopram 20 MG Tablet PO SCH (09:00)
--- NOTE | 2018-05-20 12:10 | ECG ---
Date Performed: 05/19/2018 Time Performed: 17:03:25 PTAGE: 83 years EKG: Sinus rhythm MARKED LEFT AXIS DEVIATION ABNORMAL ECG Since the PREVIOUS TRACING , no significant change noted PREVIOUS TRACIN09/06/2016 19.48 DOCTOR: Tomer Rico Interpretating Date/Time 05/20/2018 12:09:13
[2018-05-20] MEDS ORDERED: Azithromycin Inj 500 MG in Sodium Chlor 0.9% Inj 250 ML IV.SIG SCH (19:00)
[2018-05-21] MEDS ORDERED: prednisoLONE Acetate 1% Opth Susp 5 ML Bottle EACH EYE SCH (09:00)
== END 2018-05-20 00:09 | disposition hospice, inpatient (51) ==
LOC: PHED 16:35 → PHEDA 20:18
PROVIDERS: ADMIT Family Medicine; ATTEND Family Medicine